=== PATIENT | male | born 1945 | race African-American/Black ===

== ENCOUNTER 2025-02-03 03:16 | Emergency (ER) | payer OTHER ==
[~2025-02-03] VITALS: Ht 182.9 cm; Wt 87.0 kg
[2025-02-03 03:23] VITALS: O2SAT 95
[2025-02-03 04:06] LABS: BASOPHILS % 0.2 % (0.0-2.0); EOSINOPHILS % 0.9 % (0.0-5.0); HEMATOCRIT. 45.4 % (42.0-52.0); HEMOGLOBIN. 14.6 g/dL (14.0-18.0); LYMPHOCYTES % 9.9 % (20.0-50.0); MEAN PLATELET VOLUME 8.5 fl (7.4-10.4); MONOCYTES % 8.3 % (2.0-8.0); NEUTROPHILS % 80.7 % (40.0-76.0); PLATELET 152 x1000/uL (130-400); RED BLOOD CELL COUNT 5.34 mill/uL (4.7-6.1); RED CELL DISTRIBUTION WIDTH 16.5 % (11.6-14.6)
[2025-02-03 04:17] LABS: CREATININE 1.4 mg/dL (0.6-1.3); UREA NITROGEN BLOOD 22.0 mg/dL (9-23)
[2025-02-03 05:30] VITALS: BP 131/69; PULSE 90; RESP 18; O2SAT 96
== END 2025-02-03 05:41 | disposition home or self-care (01) ==
LOC: ER 03:16
DX: E11.649 Type 2 diabetes mellitus with hypoglycemia without coma (principal); R41.82 Altered mental status, unspecified; Z79.899 Other long term (current) drug therapy
CPT/HCPCS: 36415; 80048; 82962; 85025; 93005; 99284; A4606